=== PATIENT | female | born 2000 | race American Indian/Alaskan Native ===

== ENCOUNTER 2018-07-10 13:26 | Emergency (ER) | payer OTHER ==
[2018-07-10 13:45] VITALS: BP 116/58
== END 2018-07-10 17:40 | disposition left against medical advice (07) ==
LOC: ED 13:26
DX: Z04.1 Encounter for examination and observation following transport accident (principal); Z53.21 Procedure and treatment not carried out due to patient leaving prior to being seen by health care provider

== ENCOUNTER 2019-06-27 21:13 | Emergency (ER) | payer OTHER ==
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
[2019-06-27 21:48] VITALS: BP 98/55
[2019-06-27 23:16] LABS: HCG Qualitative,Urine Positive (Negative)
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
== END 2019-06-27 23:40 | disposition home or self-care (01) ==
LOC: ED 21:13
DX: O9A.211 Injury, poisoning and certain other consequences of external causes complicating pregnancy, first trimester (principal); S39.012A Strain of muscle, fascia and tendon of lower back, initial encounter; S16.1XXA Strain of muscle, fascia and tendon at neck level, initial encounter; Z3A.01 Less than 8 weeks gestation of pregnancy; Z98.890 Other specified postprocedural states; Z91.040 Latex allergy status; V89.2XXA Person injured in unspecified motor-vehicle accident, traffic, initial encounter; Y93.89 Activity, other specified; Y92.410 Unspecified street and highway as the place of occurrence of the external cause; Y99.8 Other external cause status
CPT/HCPCS: 81025